=== PATIENT | female | born 1970 ===

== ENCOUNTER 2019-11-02 19:34 | Emergency (ER) | payer BC, SELFPAY ==
[2019-11-02 19:35] VITALS: BP 149/88; PULSE 87; RESP 20; TEMP 36.8; O2SAT 99; BMI 25.8
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
[2019-11-02 20:21] VITALS: BP 136/85; PULSE 67; RESP 14; O2SAT 99
[2019-11-02] MEDS: HYDROcodone-acetaminophen 7.5-325 mg Tablet 1 TAB PO (20:22)
[2019-11-02] MEDS: ondansetron 4 MG Tablet PO (20:22)
== END 2019-11-02 20:29 | disposition home or self-care (01) ==
LOC: ER 20:00
PROVIDERS: Emergency Provider Nurse Practitioner Family
DX: T23.252A Burn of second degree of left palm, initial encounter (principal); T23.122A Burn of first degree of single left finger (nail) except thumb, initial encounter; T31.0 Burns involving less than 10% of body surface; X19.XXXA Contact with other heat and hot substances, initial encounter
CPT/HCPCS: 12345; 99281; 99283; Q0162

== ENCOUNTER → 2023-10-07 08:34 | Outpatient (BNVA) | payer BC, SELFPAY | PROVIDERS: PCP Clinical Nurse Specialist Adult Health; Visit Provider Clinical Nurse Specialist Adult Health | DX: R39.15 Urgency of urination (principal); N39.0 Urinary tract infection, site not specified | CPT/HCPCS: 81000; 87077; 87086; 87184 ==

== ENCOUNTER → 2024-03-19 08:00 | Outpatient (BNVA) | payer BC, SELFPAY | PROVIDERS: PCP Clinical Nurse Specialist Adult Health | DX: R39.9 Unspecified symptoms and signs involving the genitourinary system (principal) | CPT/HCPCS: 81000 ==